=== PATIENT | male | born 1950 | race Caucasian/White ===

== ENCOUNTER 2017-09-10 17:47 | Inpatient (IN) | payer MEDICARE ==
[~2017-09-10] VITALS: Ht 170.2 cm; Wt 94.0 kg
--- NOTE | 2017-09-10 18:14 | NUR ---
PT BROUGHT STRAIGHT BACK TO ER ROOM 9 VIA WC. EKG COMPLETED. IV ESTABLISHED. PT CHANGED INTO GOWN, ON MONITOR.
[2017-09-10 18:28] LABS: HEMATOCRIT 47.6 % (39.0-50.0); HEMOGLOBIN 16.4 g/dl (14.0-18.0); IMMATURE GRANULOCYTES 0.4 % (0.0-1.0); MEAN CELL VOLUME 88.5 fL CALC (80.0-100.0); MEAN CORPUSCULAR HGB 30.5 pG CALC (26.0-32.0); MEAN CORPUSCULAR HGB CONC 34.5 g/L CALC (32.0-36.0); NEUT# 6.22 thou/uL (1.82-7.42); RED BLOOD COUNT 5.38 mill/uL (4.70-6.10); RED CELL DISTRI WIDTH 11.9 % (11.5-15.5)
[2017-09-10 18:40] LABS: ALBUMIN 4.6 g/dL (3.2-5.0); ALKALINE PHOSPHATASE 62 u/l (38-126); ANION GAP 14 (6-22 (CALC)); BILIRUBIN, TOTAL 0.9 mg/dL (0.0-1.4); BUN 15 mg/dL (8-23); BUN/CREATININE RATIO 11 (12-20 (CALC)); CALCIUM 9.4 mg/dL (8.4-10.2); CARBON DIOXIDE 26 mmol/l (22-30); CHLORIDE 103 mmol/l (95-108); CREATININE 1.4 mg/dL (0.7-1.3); GFR 51 ML/MIN (>=60 (CALC)); GFR FOR AFR.AMER. > 60 ML/MIN (>=60 (CALC)); GLUCOSE 142 mg/dL (82-115); POTASSIUM 3.9 mmol/l (3.5-5.1); SGOT/AST 18 u/l (19-48); SGPT/ALT 27 u/l (11-66); SODIUM 140 mmol/l (137-146); TOTAL PROTEIN 7.5 g/dL (6.3-8.2)
--- NOTE | 2017-09-10 18:43 | NUR ---
PT IN SEMIFOWLER POSITION. LOWEST BED POSITION, BED LOCKED, RAILS UP, CALL JONES W/IN REACH. PT TALKING/JOKING WITH & DAUGHTER @ BEDSIDE.
[2017-09-10 18:52] LABS: MYOGLOBIN 89 ng/mL (0 - 121)
--- NOTE | 2017-09-10 19:03 | NUR ---
PT. TEMP. 100.6 AWARE.
--- NOTE | 2017-09-10 19:21 | NUR ---
IVF RUNNING. SWABS COLLECTED. FAMILY @ BEDSIDE. WILL CONTINUE TO MONITOR PT.
[2017-09-10 19:41] LABS: INFLUENZA A NONE DETECTED (NONE DETECT); INFLUENZA B NONE DETECTED (NONE DETECT)
--- NOTE | 2017-09-10 19:55 | NUR ---
PT UNABLE TO GIVE A URINE SAMPLE SINCE ARRIVAL.
--- NOTE | 2017-09-10 20:08 | NUR ---
RECVING RN WILL CALL BACK FOR REPORT.
--- NOTE | 2017-09-10 20:18 | NUR ---
Admission Note Report Given to: PRABHA Transported by: Wheelchair X Stretcher Transported with: X Nurse Transporter X Patent IV O2 X Daycare Assistant
--- NOTE | 2017-09-10 20:24 | NUR ---
PT ARRIEVED TO FLOOR WITH ER STAFF. PT AMBULATED TO SCALE, THEN TO BED. PT ORIENTED TO ROOM AND CALL LIGHT SYSTEM. LUNGS CLEAR BILAT. TELE IN PLACE. RESP EVEN AND UNLABORED. NO DISTRESS NOTED. ABD SOFT, ACTIVE BOWEL SOUNDS. PT STATES HE HAD A BM THIS MORNING. PEDAL PULSES PALPATED BILAT. IV RAC PATENT. PT DENIES ANY PAIN OR DISCOMFORT AT THIS TIME. FREQUENT ROUNDS MADE. CALL LIGHT WITHIN REACH.
--- NOTE | 2017-09-10 20:34 | NUR ---
PT TRANSFERED UP TO [facility] IN STABLE CONDITION WITH VIA STRETCHER W/TELE. URINE SAMPLE COLLECTED PRIOR TO TRANSFER.
[2017-09-10 20:56] LABS: URINE BILIRUBIN - DIPSTICK NEGATIVE (NEGATIVE); URINE BLOOD DIPSTICK TRACE-INTACT (NEGATIVE); URINE COLOR YELLOW; URINE GLUCOSE - DIPSTICK NEGATIVE (NEGATIVE); URINE KETONE NEGATIVE (NEGATIVE); URINE LEUK ESTERASE NEGATIVE (NEGATIVE); URINE NITRITE - DIPSTICK NEGATIVE (Negative); URINE PH 6.5 (4.5-8.0); URINE PROTEIN - DIPSTICK NEGATIVE (NEG-TRACE)
[2017-09-10 20:57] LABS: URINE CLARITY CLEAR
[2017-09-10 21:00] LABS: BARBITURATES NEGATIVE (NEGATIVE); COCAINE NEGATIVE (NEGATIVE); METHADONE NEGATIVE (NEGATIVE); OXCYCODONE NEGATIVE (NEGATIVE); TETRAHYDROCANNABIONOL NEGATIVE (NEGATIVE); TRICYLIC ANTIDEPRESSANTS NEGATIVE (NEGATIVE)
--- NOTE | 2017-09-10 21:24 | NUR ---
PT STATES HE IS HAVING CHEST PAIN. PT STATES PAIN IS AN 8. BP;177/89. HR;110. EKG ORDERED; SINUS TACHYCARDIA. NO SHORTNESS OF BREATH NOTED FROM PT. RESP EVEN AND UNLABORED. DR PATTERSON NOTIFIED.
--- NOTE | 2017-09-10 21:57 | NUR ---
MORPHINE 2MG & FIRST NITRO SL GIVEN. 2201 PT STATES RELIEF FROM CHEST PAIN. BP;156/76. HR;109. RESP EVEN AND UNLABORED. NO DISTRESS NOTED. O2;97% ON ROOM AIR. PT INSTRUCTED TO NOTIFY NURSE IF CHEST PAIN REOCCURS. CALL LIGHT WITHIN REACH.
--- NOTE | 2017-09-10 21:57 | NUR ---
MORPHINE 2MG & FIRST NITRO SL GIVEN. 2201 PT STATES HE HAS RELIEF FROM CHEST PAIN. BP; 156/76, HR;109. RESP EVEN AND UNLABORED. NO DISTRESS NOTED. O2; 97% ON ROOM AIR. PT INSTRUCTED TO NOTIFY NURSE IF CHEST PAIN REOCCURS. CALL LIGHT WITHIN REACH.
--- NOTE | 2017-09-11 00:20 | NUR ---
PT RESTING IN BED WITH FAMILY AT BEDSIDE. RESP EVEN AND UNLABORED. NO DISTRESS NOTED. PT DENIES ANY PAIN. TELE IN PLACE.CALL LIGHT WITHIN REACH.
--- NOTE | 2017-09-11 01:10 | NUR ---
CRITICAL LAB RESULT; TROPONIN: 0.377. DR PATTERSON NOTIFIED OF RESULT.
[2017-09-11 01:52] VITALS: BP 144/67
[2017-09-11 04:01] VITALS: BP 134/74
--- NOTE | 2017-09-11 04:01 | NUR ---
PT WOKE FOR MORNING VITALS. TEMP;100.8, MEDICATED WITH TYLENOL. PT DENIES ANY PAIN OR DISCOMFORT. RESP EVEN AND UNLABORED. NO DISTRESS NOTED. TELE IN PLACE. FAMILY AT BEDSIDE. CALL LIGHT WITHIN REACH.
[2017-09-11 06:25] LABS: ANION GAP 17 (6-22 (CALC)); BUN 14 mg/dL (8-23); BUN/CREATININE RATIO 12 (12-20 (CALC)); CALCIUM 8.8 mg/dL (8.4-10.2); CALCULATED LDLCHOLESTEROL 95 mg/dL (62-129 (CALC)); CARBON DIOXIDE 24 mmol/l (22-30); CHLORIDE 103 mmol/l (95-108); CHOLESTEROL HDL RATIO 4.6 (<4.4 (CALC)); CREATININE 1.2 mg/dL (0.7-1.3); GFR > 60 ML/MIN (>=60 (CALC)); GFR FOR AFR.AMER. > 60 ML/MIN (>=60 (CALC)); GLUCOSE 141 mg/dL (82-115); HDL CHOLESTEROL 34 mg/dL (>=40); MAGNESIUM 1.8 mg/dL (1.6-2.3); POTASSIUM 3.8 mmol/l (3.5-5.1); SODIUM 140 mmol/l (137-146); TOTAL CHOLESTEROL 154 mg/dl (0-199); TOTAL TRIGLYCERIDES 129 mg/dl (30-149); VLDL CHOLESTROL 26 mg/dl (4-45 (CALC))
--- NOTE | 2017-09-11 06:36 | NUR ---
EKG COMPLETE; PER DR PATTERSON ORDERS.
--- NOTE | 2017-09-11 06:44 | NUR ---
CRITICAL TROPONIN; 1.580. DR PATTERSON NOTIFIED.
--- NOTE | 2017-09-11 07:10 | NUR ---
PT.UPRIGHT IN BED W/LIGHTS LOW,TV ON AND FAMILY AT BEDSIDE. PT.DENIES ANY PAIN OR DISCOMFORT, NO S/S OF DISTRESS AT THIS TIME. CALL LIGHT W/IN REACH AND PT.INSTRUCTED TO CALL IF ANY NEEDS ARISE.
--- NOTE | 2017-09-11 07:15 | NUR ---
REPORT GIVEN TO CLEMENTE GARCIA. PT RESTING IN BED WITH NO COMPLAINT OF PAIN OR DISCOMFORT AT THIS TIME. FAMILY AT BEDSIDE. CALL LIGHT WITHIN REACH.
--- NOTE | 2017-09-11 07:49 | NUR ---
PT.V/S ASSESSED BP140/72,HR96, TEMP 98.8. PT.DENIES ANY CHEST PAIN OR DISCOMFORT AT THIS TIME, HE IS UPRIGHT IN BED WATCHING TV W/FAMILY AT BEDSIDE. DENIES ANY OTHER NEEDS AT THIS TIME, CALL LIGHT IS W/IN PT.REACH
[2017-09-11 07:55] VITALS: BP 140/72
--- NOTE | 2017-09-11 09:02 | NUR ---
PT.FAMILY C/O PT NOT RECEIVING BREAKFAST, I DISCUSSED POSSIBLE POC WITH PT.AND FAMILY TO INFORM THEM OF PURPOSE OF NPO STATUS. PT.VERBALLY EXPRESSED UNDERSTANDING AND AGREED THAT HE WOULD RATHER NOT EAT AND KNOW THAT HE CAN GET ANY TESTING OR PROCEDURES NEEDED SOON POSSIBLE IF ORDERED. PT.MEDICATIONS ADMINISTERED AND ASSESSMENT COMPLETED. PT.LOCX4, DENIES PAIN AT THIS TIME, NEURO'S INTACT, NO EDEMA NOTED, ABD.SOFT/NON-TENDER/HYPERACTIVE, LUNG SOUNDS DIM/CLEAR.
[2017-09-11 12:10] VITALS: BP 181/96
--- NOTE | 2017-09-11 12:10 | NUR ---
PT.UPRIGHT IN BED, FAMILY AT BEDSIDE, FAMILY APPEARS UPSET AND REQUESTS FOOD, REQUESTS THAT I GET NEEDED TESTS ORDERED, TELLS ME TO "SEND THE DOCTOR IN," STATES THAT I EITHER NEED TO GET TESTS COMPLETED OR FEED HIM. I EXPLAINED POC AND TRANSFER PROCESS TO THE PT.AND FAMILY AND ATTEMPTED TO EDUCATE THEM TO THE IMPORTANCE OF HEART CATHETERIZATION BEING PERFORMED SOON ADMITTING DOCTOR AND BED IS AVAILABLE, THEREFORE WE ARE HOLDING PO FOODS AT THIS TIME NOT TO HENDER ANY POSSIBLY NEEDED TESTS MILO. PT.S STATED, "I'LL GO [place]OGEL DOWN THE DOCTOR," THE PT.THEN GOT UPSET AND YELLED AT THE DAUGHTER, "GET HER OUT OF HERE!." PT.REPORTS PAIN IN HEAD AND BACK. I HAVE NOTIFIED JR LANG OF PT.PAIN AND FAMILY REQUEST TO SEE DOCTOR.
[2017-09-11 12:16] VITALS: BP 167/76
--- NOTE | 2017-09-11 13:11 | NUR ---
LAB CALLED WITH CRITICAL TROPONIN LEVEL OF 2.980, AND JR LANG NOTIFIED
--- NOTE | 2017-09-11 13:55 | NUR ---
EKG COMPLETED AT THIS TIME BEFORE TRANSPORT
--- NOTE | 2017-09-11 14:00 | NUR ---
PT.TRANSFERRED TO [facility], LEFT THE FLOOR STABLE AT THIS TIME, VIA STRETCHER ACCOMPANIED BY [facility] AND FAMILY AT SIDE.
== END 2017-09-11 14:00 | disposition short-term general hospital (02) | DRG 311 ==
LOC: ED 17:47 → ED-I 19:45 → ED 19:55 → MS2 19:56
PROVIDERS: Emergency Medicine; ADMIT Internal Medicine; ATTEND Internal Medicine
DX: I24.9 Acute ischemic heart disease, unspecified (principal); N17.9 Acute kidney failure, unspecified; I10 Essential (primary) hypertension; F17.210 Nicotine dependence, cigarettes, uncomplicated; M54.5 Low back pain; E86.0 Dehydration; J20.9 Acute bronchitis, unspecified; Z68.32 Body mass index [BMI] 32.0-32.9, adult
CPT/HCPCS: G0378; J1650